=== PATIENT | female | born 1990 | race American Indian/Alaskan Native ===

== ENCOUNTER 2021-09-15 13:52 | Outpatient (CLI) | payer MEDICAID ==
[2021-09-15 14:31] VITALS: BP 112/59
[2021-09-15 15:14] LABS: Hematocrit 30.5 % (30.3-42.9); Hemoglobin 10.3 gm/dl (10.1-14.3); Mean Corpuscular HGB Conc 34 % (30-34); Mean Corpuscular Volume 88 fl (79-97); Platelet Count 315 K/mm3 (140-440); Red Blood Count 3.48 M/mm3 (3.65-5.03); Red Cell Distribution Width 13.2 % (13.2-15.2)
[2021-09-15 15:38] LABS: Alanine Aminotransferase 12 units/L (7-56); Albumin 3.2 g/dL (3.9-5); Blood Urea Nitrogen 4 mg/dL (7-17); Calcium 8.3 mg/dL (8.4-10.2); Hemolysis Index 14
[2021-09-15 15:45] LABS: BUN/Creatinine Ratio 10
--- NOTE | 2021-09-15 16:06 | Ultrasound Report ---
LIMITED RUQ ABDOMINAL ULTRASOUND INDICATION: gallbladder. COMPARISON: No relevant prior imaging study available. FINDINGS: Pancreas: Visualized portions show no significant abnormality. Abdominal Aorta: Normal size. IVC: No significant abnormality. Liver: The liver measures 15.2 cm in length. No significant abnormality. Normal hepatopedal blood fl ow in the main portal vein. Gallbladder: No significant abnormality. Bile ducts: No significant abnormality. Common bile duct measures 4 mm. Right kidney: No significant abnormality visualized.. Free fluid: None. Additional Findings: None. IMPRESSION: 1. Normal exam. Signer Name: Bud Galindo MD Signed: 09/15/2021 4:02 PM Workstation Name: [id number]
[2021-09-15 19:41] LABS: Total Cells Counted 100
[2021-09-15 19:42] LABS: RBC Morphology Normal
== END 2021-09-15 17:45 | disposition home or self-care (01) ==
LOC: TRG 13:52 → APU 13:56 → TRG 17:45
PROVIDERS: ATTEND Obstetrics & Gynecology
DX: R10.11 Right upper quadrant pain (principal)
CPT/HCPCS: 36415; 76705; 80053; 82150; 83690; 85007; 85025

== ENCOUNTER 2021-12-14 13:25 | Inpatient (IN) | payer MEDICAID ==
[2021-12-14 15:44] LABS: Basophils % (Auto) 0.4 % (0.0-1.8); Eosinophils % (Auto) 0.2 % (0.0-4.3); Hematocrit 33.5 % (30.3-42.9); Hemoglobin 10.7 gm/dl (10.1-14.3); Lymphocytes # (Auto) 2.1 K/mm3 (1.2-5.4); Lymphocytes % (Auto) 18.2 % (13.4-35.0); Mean Corpuscular HGB Conc 32 % (30-34); Mean Corpuscular Volume 86 fl (79-97); Monocytes # (Auto) 0.6 K/mm3 (0.0-0.8); Monocytes % (Auto) 5.1 % (0.0-7.3); Platelet Count 313 K/mm3 (140-440); Red Blood Count 3.91 M/mm3 (3.65-5.03); Red Cell Distribution Width 14.7 % (13.2-15.2)
[2021-12-14] MEDS ORDERED: OXYTOCIN 10 UNIT/1 ML INJ IM PRN (17:00)
[2021-12-14] MEDS ORDERED: TERBUTALINE 1 MG/1 ML INJ SUB-Q PRN (17:00)
[2021-12-14] MEDS ORDERED: fentaNYL 100 MCG/2 ML INJ IV PRN (17:00)
[2021-12-14] MEDS ORDERED: NALOXONE 0.4 MG/1 ML INJ IV PRN (17:00)
[2021-12-14] MEDS ORDERED: LOPERAMIDE 2 MG CAP PO PRN (17:00)
[2021-12-14] MEDS ORDERED: METHYLERGONOVINE MALEATE 0.2 MG/ML VIAL IM PRN (17:00)
[2021-12-14] MEDS ORDERED: ACETAMINOPHEN 325 MG TAB PO PRN (17:00)
[2021-12-14] MEDS ORDERED: ONDANSETRON 4 MG/2 ML INJ IV PRN (17:00)
[2021-12-14] MEDS ORDERED: ePHEDrine SULFATE 50 MG/1 ML INJ IV PRN (17:00)
[2021-12-14] MEDS ORDERED: MINERAL OIL 30 ML ORAL LIQD PO PRN (17:00)
[2021-12-14] MEDS ORDERED: PROMETHAZINE 25 MG TAB PO PRN (17:00)
[2021-12-14] MEDS ORDERED: miSOPROStol 200 MCG TAB PR PRN (17:00)
[2021-12-14] MEDS ORDERED: CARBOPROST TROMETHAMINE 250 MCG/1 ML INJ IM PRN (17:00)
[2021-12-14] MEDS ORDERED: LIDOCAINE (2%) 20 MG/1 ML VIAL 20 ML MDV INFILTRATI ONE (18:00)
[2021-12-14] MEDS ORDERED: DINOPROSTONE 10 MG VAG SUPP VG ONE (19:00)
--- NOTE | 2021-12-14 19:19 | History and Physical Report ---
History of Present Illness Date of examination: 12/14/21 Date of admission: 12/14/21 14:06 Chief complaint: Sent from clinic with Oligohydramnios History of present illness: at 40.3wks by LMP c/w U/S. care at [facility]. Pt sent for low MARK. Pt admits to movement, denies LOF or vag bleed or ctx. Pt denies headache. labs with O positive, neg screen, rubella immunea and VDRL neg, HIV neg and GBS status not in the records. 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, Elevated amylase ?cause, Leucocytosis, Low vit D) Past Surgical History: no surgical history Social history: no significant social history - Obstetrical History Expected Date of Delivery: 12/11/21 Actual Gestation: 40 Week(s) 3 Day(s) : 5 Hx # Term Pregnancies: 3 Spontaneous Abortions: 1 Number of Living Children: 3 Medications and Allergies Allergies Allergy/AdvReac Type Severity Reaction Status Date / Time No Known Allergies Allergy Unverified 09/15/21 14:32 Home Medications Medication Instructions Recorded Confirmed Last Taken Type Amoxicillin/Potassium Clav 1 each PO BID 7 Days #14 tablet 09/15/21 Unknown Rx [Augmentin 875-125 Tablet] Active Meds: Active Medications Acetaminophen (Acetaminophen 325 Mg Tab) 650 mg PO Q4H PRN PRN Reason: Pain, Mild (1-3) Carboprost Tromethamine (Carboprost Tromethamine 250 Mcg/1 Ml Inj) 250 mcg IM ONCE PRN PRN Reason: Uterine Bleeding Ephedrine Sulfate (Ephedrine Sulfate 50 Mg/1 Ml Inj) 10 mg IV Q2M PRN PRN Reason: Hypotension Fentanyl (Fentanyl 100 Mcg/2 Ml Inj) 100 mcg IV Q2H PRN PRN Reason: Pain,Severe (7-10) LABOR PAIN Lactated Ringer's (Lactated Ringers) 1,000 mls @ 125 mls/hr IV DIRECT ALDO Oxytocin/Sodium Chloride (Pitocin/Ns 30 Unit/500ml) 30 units in 500 mls @ 40 mls/hr IV TITR ALDO; Protocol Loperamide HCl (Loperamide 2 Mg Cap) 2 mg PO ONCE PRN PRN Reason: give with Hemabate Methylergonovine Maleate (Methylergonovine Maleate 0.2 Mg/Ml Vial) 0.2 mg IM ONCE PRN PRN Reason: Uterine Bleeding Mineral Oil (Mineral Oil 30 Ml Oral Liqd) 30 ml PO QHS PRN PRN Reason: Constipation Misoprostol (Misoprostol 200 Mcg Tab) 800 mcg [place] ONCE PRN PRN Reason: Uterine Bleeding Nalbuphine HCl (Nalbuphine 10 Mg/1 Ml Inj) 10 mg IV Q2H PRN PRN Reason: Pain, Moderate (4-6) Naloxone HCl (Naloxone 0.4 Mg/1 Ml Inj) 0.1 mg IV Q2MIN PRN PRN Reason: Res Rate </= 8 or 02 SAT < 92% Ondansetron HCl (Ondansetron 4 Mg/2 Ml Inj) 4 mg IV Q8H PRN PRN Reason: Nausea And Vomiting Oxytocin (Oxytocin 10 Unit/1 Ml Inj) 10 unit IM ONCE PRN PRN Reason: Uterine Bleeding Promethazine HCl (Promethazine 25 Mg Tab) 25 mg PO Q6H PRN PRN Reason: Nausea And Vomiting Terbutaline Sulfate (Terbutaline 1 Mg/1 Ml Inj) 0.25 mg SUB-Q ONCE PRN PRN Reason: Hyperstimulation/Hypertonicity Review of Systems All systems: negative (no complaints) - Vital Signs Vital signs: Vital Signs Pulse BP 73 124/75 12/14/21 14:40 12/14/21 14:40 Temp Pulse Resp BP Pulse Ox 98.9 F 81 16 115/60 100 12/14/21 18:13 12/14/21 19:09 12/14/21 18:13 12/14/21 18:15 12/14/21 19:09 - Physical Exam Breasts: Positive: deferred Cardiovascular: Regular rate Lungs: Positive: Normal air movement Genitourinary (Female): Positive: normal external genitalia Vulva: both: normal (by nurse exam) Uterus: Positive: enlarged (non-tender, gravid) - Obstetrical FHR: category 1 Uterine Contraction Monitor Mode: External Cervical Dilatation: 1 Cervical Effacement Percentage: 60 station: -2 Uterine Contraction Pattern: Absent Results Result Diagrams: 12/14/21 14:58 Abnormal lab results 12/14/21 12/14/21 Range/Units 14:58 14:58 WBC 11.4 H (4.5-11.0) K/mm3 MCH 27 L (28-32) pg Seg Neutrophils % 76.1 H (40.0-70.0) % Seg Neutrophils # 8.7 H (1.8-7.7) K/mm3 Syphilis IgG Antibody Reactive A (NonReactive) All other labs normal. Assessment and Plan Term preg with Oligohydramnios, unknown cause 1. Admit to labor and delivery 2. Cervidil induction 3. Check labs and confirm intact membranes 4. May have IV pain med or epidural when needed Expect
[2021-12-14 21:19] LABS: Alanine Aminotransferase 6 units/L (7-56); Albumin 3.3 g/dL (3.9-5); Blood Urea Nitrogen 4 mg/dL (7-17); Calcium 8.6 mg/dL (8.4-10.2); Hemolysis Index 5
[2021-12-14 21:28] LABS: BUN/Creatinine Ratio 8
[2021-12-15] MEDS: NalbUPHINE 10 MG/1 ML INJ IV PRN ×2 (01:20→05:27)
[2021-12-15] MEDS ORDERED: miSOPROStol 25 MCG TAB PO SCH (06:00)
[2021-12-15] MEDS: OXYTOCIN DRIP 30 UNITS/500 ML BAG IV SCH ×3 (07:37→19:54)
--- NOTE | 2021-12-15 07:45 | Procedure Note ---
OB Delivery Note - Delivery Date of Delivery: 12/15/21 Surgeon: BLANCHE ROBERTS Estimated blood loss: 300cc - Vaginal Delivery position: OA Intrapartum events: precipitous labor- <3hr Delivery induction: other (Cervidil, Quispe Bulb, misoprostol) Delivery augmentation: rupture of membranes Delivery monitor: external FHT Route of delivery: Delivery placenta: spontaneous Delivery cord: nuchal cord Episiotomy: none Delivery laceration: none - A at 1 minute: 8 at 5 minutes: 9 Gender: Female
[2021-12-15] MEDS ORDERED: LANOLIN/ZINC/DIMETHICONE (LANSINOH) 7 GM TP PRN (08:00)
[2021-12-15] MEDS ORDERED: diphenhydrAMINE 25 MG CAP PO PRN (08:00)
[2021-12-15] MEDS ORDERED: WITCH HAZEL/ GLYCERIN PAD TP PRN (08:00)
[2021-12-15] MEDS ORDERED: ACETAMINOPHEN 325 MG TAB PO PRN (08:00)
[2021-12-15] MEDS: IBUPROFEN 600 MG TAB PO SCH ×3 (08:13→22:19)
[2021-12-15] MEDS ORDERED: PROMETHAZINE 25 MG TAB PO PRN (08:30)
[2021-12-15] MEDS ORDERED: ONDANSETRON 4 MG/2 ML INJ IV PRN (08:30)
[2021-12-15] MEDS: DOCUSATE SODIUM 100 MG CAP PO SCH (09:47)
[2021-12-15] MEDS: HYDROcodone/ACETAMINOPHEN 5-325 MG TAB PO PRN (09:47)
[2021-12-15 10:48] LABS: Hematocrit 30.6 % (30.3-42.9); Hemoglobin 9.7 gm/dl (10.1-14.3); Mean Corpuscular HGB Conc 32 % (30-34); Mean Corpuscular Volume 86 fl (79-97); Platelet Count 289 K/mm3 (140-440); Red Blood Count 3.56 M/mm3 (3.65-5.03); Red Cell Distribution Width 14.5 % (13.2-15.2)
--- NOTE | 2021-12-15 13:52 | Consultation ---
History of Present Illness - Reason for Consult Consult date: 12/15/21 Medical management Requesting physician: BASIM CORDOBA - History of Present Illness 31 YO Female s/p . Consult place for medical management. Pt found to have syphilis on routine screening lab exam. Patient seen and evaluated in her room. Patient denies fever, chills, chest pain, palpitation, productive cough, skin extremities no contact, known exposure to COVID-19. Patient denies pain. No reported nursing events. Past History Past Medical History: anemia Past Surgical History: No surgical history, Other (Reviewed) Social history: single. denies: smoking, alcohol abuse, prescription drug abuse Family history: hypertension Medications and Allergies Allergies Allergy/AdvReac Type Severity Reaction Status Date / Time No Known Allergies Allergy Unverified 09/15/21 14:32 Active Meds: Active Medications Acetaminophen (Acetaminophen 325 Mg Tab) 650 mg PO Q4H PRN PRN Reason: Pain MILD(1-3)/Fever >100.5/LOPEZ Hydrocodone Bitart/Acetaminophen (Hydrocodone/Acetaminophen 5-325 Mg Tab) 2 each PO Q6H PRN PRN Reason: Pain, Moderate (4-6) Last Admin: 12/15/21 09:47 Dose: 2 each Bisacodyl (Bisacodyl 10 Mg Rect Supp) 10 mg VT BID PRN PRN Reason: Constipation Carboprost Tromethamine (Carboprost Tromethamine 250 Mcg/1 Ml Inj) 250 mcg IM ONCE PRN PRN Reason: Uterine Bleeding Diphenhydramine HCl (Diphenhydramine 25 Mg Cap) 25 mg PO Q6H PRN PRN Reason: Itching Docusate Sodium (Docusate Sodium 100 Mg Cap) 100 mg PO BID ALDO Last Admin: 12/15/21 09:47 Dose: 100 mg Ephedrine Sulfate (Ephedrine Sulfate 50 Mg/1 Ml Inj) 10 mg IV Q2M PRN PRN Reason: Hypotension Fentanyl (Fentanyl 100 Mcg/2 Ml Inj) 100 mcg IV Q2H PRN PRN Reason: Pain,Severe (7-10) LABOR PAIN Lactated Ringer's (Lactated Ringers) 1,000 mls @ 125 mls/hr IV DIRECT ALDO Oxytocin/Sodium Chloride (Pitocin/Ns 30 Unit/500ml) 30 units in 500 mls @ 40 mls/hr IV TITR ALDO; Protocol Last Admin: 12/15/21 07:37 Dose: 40 ml/hr, 40 mls/hr Ibuprofen (Ibuprofen 600 Mg Tab) 600 mg PO Q6H [facility] Last Admin: 12/15/21 08:13 Dose: 600 mg Loperamide HCl (Loperamide 2 Mg Cap) 2 mg PO ONCE PRN PRN Reason: give with Hemabate Magnesium Hydroxide (Magnesium Hydroxide (Mom) Oral Liqd Udc) 30 ml PO HS PRN PRN Reason: Constipation Methylergonovine Maleate (Methylergonovine Maleate 0.2 Mg/Ml Vial) 0.2 mg IM ONCE PRN PRN Reason: Uterine Bleeding Mineral Oil (Mineral Oil 30 Ml Oral Liqd) 30 ml PO QHS PRN PRN Reason: Constipation Misoprostol (Misoprostol 25 Mcg Tab) 25 mcg PO Q4H [facility] Stop: 12/15/21 18:01 Multi-Ingredient Ointment (Lanolin/Zinc/Dimethicone (Lansinoh) 7 Gm) 1 applic TP PRN PRN PRN Reason: Sore Nipples Nalbuphine HCl (Nalbuphine 10 Mg/1 Ml Inj) 10 mg IV Q2H PRN PRN Reason: Pain, Moderate (4-6) Last Admin: 12/15/21 05:27 Dose: 10 mg Naloxone HCl (Naloxone 0.4 Mg/1 Ml Inj) 0.1 mg IV Q2MIN PRN PRN Reason: Res Rate </= 8 or 02 SAT < 92% Ondansetron HCl (Ondansetron 4 Mg/2 Ml Inj) 4 mg IV Q8H PRN PRN Reason: Nausea And Vomiting Last Admin: 12/15/21 09:00 Dose: 4 mg Penicillin G Benzathine (Penicillin G Benzathine 1.2 Million Unit/2 Ml Inj) 2.4 mil.units IM ONCE ONE Stop: 12/15/21 14:01 Promethazine HCl (Promethazine 25 Mg Tab) 25 mg PO Q6H PRN PRN Reason: Nausea And Vomiting Sodium Chloride (Sodium Chloride 0.9% 10 Ml Flush Syringe) 10 ml IV PRN NR Stop: 12/25/21 07:59 Terbutaline Sulfate (Terbutaline 1 Mg/1 Ml Inj) 0.25 mg SUB-Q ONCE PRN PRN Reason: Hyperstimulation/Hypertonicity Witch Sasha/Glycerin (Witch Sasha/ Glycerin Pad) 1 each TP PRN PRN PRN Reason: Hemorrhoid/cleansing/soothing Review of Systems Constitutional: no weight loss, no weight gain, no fever, no chills Ears, nose, mouth and throat: no ear pain, no ear discharge, no decreased hearing, no nose pain, no nasal discharge Breasts: no change in shape, no swelling, no mass Cardiovascular: no orthopnea, no palpitations, no rapid/irregular heart beat, no syncope Respiratory: no cough, no excessive sputum, no shortness of breath, no dyspnea on exertion Gastrointestinal: no abdominal pain, no diarrhea, no constipation, no h ematemesis Genitourinary Female: no pelvic pain, no flank pain, no dysuria, no urinary frequency, no urgency Rectal: no pain, no incontinence Musculoskeletal: no shooting arm pain, no low back pain Integumentary: no rash, no redness Neurological: no head injury, no paralysis, no numbness, no seizures, no syncope Psychiatric: no anxiety, no change in sleep habits, no change in libido Endocrine: no cold intolerance, no polydipsia, no polyuria Hematologic/Lymphatic: no easy bruising, no easy bleeding Allergic/Immunologic: no urticaria, no allergic rhinitis, no wheezing Exam - Constitutional Vitals: Temp Pulse Resp BP Pulse Ox 98.2 F 67 16 111/66 95 12/15/21 12:05 12/15/21 12:05 12/15/21 12:05 12/15/21 12:05 12/15/21 12:05 General appearance: Present: no acute distress, well-nourished - EENT Eyes: Present: PERRL ENT: hearing intact, clear oral mucosa - Neck Neck: Present: supple, normal ROM - Respiratory Respiratory effort: normal Respiratory: bilateral: CTA - Cardiovascular Heart Sounds: Present: S1 & S2. Absent: rub, click - Extremities Extremities: pulses symmetrical, No edema Peripheral Pulses: within normal limits - Abdominal General gastrointestinal: Present: soft, non-tender, non-distended, normal bowel sounds Female genitourinary: Present: normal - Integumentary Integumentary: Present: clear, warm, dry - Musculoskeletal Musculoskeletal: gait normal, strength equal bilaterally - Psychiatric Psychiatric: appropriate mood/affect, intact judgment & insight - Neurologic Neurologic: CNII-XII intact, moves all extremities Results - Labs CBC & Chem 7: 12/15/21 19:00 12/15/21 19:00 Labs: Abnormal lab results 12/14/21 12/14/21 12/14/21 Range/Units 14:58 14:58 20:39 WBC 11.4 H (4.5-11.0) K/mm3 RBC (3.65-5.03) M/mm3 Hgb (10.1-14.3) gm/dl MCH 27 L (28-32) pg Seg Neutrophils % 76.1 H (40.0-70.0) % Seg Neutrophils # 8.7 H (1.8-7.7) K/mm3 Sodium (137-145) mmol/L Carbon Dioxide (22-30) mmol/L BUN (7-17) mg/dL Creatinine (0.6-1.2) mg/dL Glucose (65-100) mg/dL ALT (7-56) units/L Alkaline Phosphatase (35-129) units/L Albumin (3.9-5) g/dL Amylase 201 H (27-131) units/L Syphilis IgG Antibody Reactive A (NonReactive) 12/14/21 12/15/21 Range/Units 20:39 10:28 WBC 13.7 H (4.5-11.0) K/mm3 RBC 3.56 L (3.65-5.03) M/mm3 Hgb 9.7 L (10.1-14.3) gm/dl MCH 27 L (28-32) pg Seg Neutrophils % (40.0-70.0) % Seg Neutrophils # (1.8-7.7) K/mm3 Sodium 134 L (137-145) mmol/L Carbon Dioxide 21 L (22-30) mmol/L BUN 4 L (7-17) mg/dL Creatinine 0.5 L (0.6-1.2) mg/dL Glucose 103 H (65-100) mg/dL ALT 6 L (7-56) units/L Alkaline Phosphatase 214 H (35-129) units/L Albumin 3.3 L (3.9-5) g/dL Amylase (27-131) units/L Syphilis IgG Antibody (NonReactive) Assessment and Plan - Patient Problems (1) Syphilis in , condition Current Visit: Yes Status: Acute Plan to address problem: Patient treated with penicillin G2 400,000 units, supportive care. patient counseled regarding high risk sexual behavior.
[2021-12-15] MEDS ORDERED: PENICILLIN G BENZATHINE 1.2 MILLION UNIT/2 ML INJ IM ONE (14:00)
[2021-12-15] MEDS ORDERED: OXYTOCIN DRIP 30 UNITS/500 ML BAG IV SCH (18:30)
[2021-12-15] MEDS ORDERED: miSOPROStol 200 MCG TAB ONE (18:46)
[2021-12-15] MEDS ORDERED: fentaNYL 100 MCG/2 ML INJ IV ONE (18:50)
[2021-12-15] MEDS: LACTATED RINGERS 1,000 ML IV SCH ×2 (18:58→21:54)
--- NOTE | 2021-12-15 19:09 | Event Note ---
Date: 12/15/21 Nurse called from stating pt has hemorrhage. I went to bedside and removed approx 100cc of clots, 2nd line IV start done to right forearm after nurse attempt x1 failed. V/S stable. SSE done and no cervical lacerations seen. Pt then given IV fentanyl 100mcg and manual removal clots done x2 and fundus at 14wks. OB u/s done for retained products. CBC sent. IV saline 1liter ordered and pt to get 2 doses of ancef 2Gm now and repeat in 8hrs x2nd dose. Pt remained alert during the entire exam. Cytotec 800mcg placed per rectum without difficulty. Quispe cath to gravity ordered and same may remain during the night and nurse to notify MD if output less than 30cc/hr. Will await the above results and notify release of information specialist team if pt remains stable. All questions encouraged and answered. QBL per charge nurse later obtained was 293cc.
[2021-12-15 19:36] LABS: Alanine Aminotransferase 8 units/L (7-56); Albumin 2.7 g/dL (3.9-5); Blood Urea Nitrogen 4 mg/dL (7-17); Calcium 8.2 mg/dL (8.4-10.2); Hemolysis Index 14
[2021-12-15 19:38] LABS: BUN/Creatinine Ratio 10
[2021-12-15 19:45] LABS: Basophils # (Auto) 0.1 K/mm3 (0.0-0.1); Basophils % (Auto) 0.6 % (0.0-1.8); Eosinophils % (Auto) 0.2 % (0.0-4.3); Hematocrit 33.1 % (30.3-42.9); Hemoglobin 10.3 gm/dl (10.1-14.3); Lymphocytes # (Auto) 2.8 K/mm3 (1.2-5.4); Lymphocytes % (Auto) 17.4 % (13.4-35.0); Mean Corpuscular HGB Conc 31 % (30-34); Mean Corpuscular Volume 87 fl (79-97); Monocytes # (Auto) 0.6 K/mm3 (0.0-0.8); Monocytes % (Auto) 4.1 % (0.0-7.3); Red Blood Count 3.79 M/mm3 (3.65-5.03); Red Cell Distribution Width 14.4 % (13.2-15.2)
[2021-12-15] MEDS ORDERED: miSOPROStol 200 MCG TAB VG ONE (19:50)
[2021-12-15 19:52] LABS: Platelet Count 208 K/mm3 (140-440)
--- NOTE | 2021-12-15 20:15 | Ultrasound Report ---
ULTRASOUND OBSTETRIC INDICATION: Possible retained placenta. TECHNIQUE: Transvaginal. COMPARISON: None available. FINDINGS: UTERUS: Expected enlargement of the uterus, measuring 14.3 x 9.1 x 9.3 cm. A round hyperec hoic structure is noted along the uterine fundus on image 12 measuring 2.3 x 1.8 cm. This finding was not evaluated with color Doppler imaging. There is expected appearance and thickness of the endometr ial complex, which measures 4 mm. No evidence of retained products of conception is noted along the e ndometrial canal. ADNEXA: No significant abnormality. FREE FLUID: Expected small amount of free fluid along the cul-de-sac. ADDITIONAL FINDINGS: None. IMPRESSION: 1. Indeterminate hyperechoic structure in the uterine fundus is incompletely evaluated. Retained prod ucts of conception cannot be entirely excluded. However, this finding appears separate from the endom etrial canal. 2. No other significant abnormality. Signer Name: Bryce Mix MD Signed: 12/15/2021 8:11 PM Workstation Name: [id number]
[2021-12-15] MEDS ORDERED: MAGNESIUM HYDROXIDE (MOM) ORAL LIQD UDC PO PRN (22:00)
[2021-12-16] MEDS: HYDROcodone/ACETAMINOPHEN 5-325 MG TAB PO PRN ×2 (01:47→11:18)
[2021-12-16] MEDS: DOCUSATE SODIUM 100 MG CAP PO SCH ×3 (05:54→23:59)
[2021-12-16] MEDS: IBUPROFEN 600 MG TAB PO SCH ×2 (06:06→17:10)
[2021-12-16 11:21] LABS: Basophils # (Auto) 0.1 K/mm3 (0.0-0.1); Basophils % (Auto) 0.5 % (0.0-1.8); Eosinophils # (Auto) 0.1 K/mm3 (0.0-0.4); Eosinophils % (Auto) 0.6 % (0.0-4.3); Hematocrit 25.8 % (30.3-42.9); Hemoglobin 8.3 gm/dl (10.1-14.3); Lymphocytes # (Auto) 3.1 K/mm3 (1.2-5.4); Lymphocytes % (Auto) 22.3 % (13.4-35.0); Mean Corpuscular HGB Conc 32 % (30-34); Mean Corpuscular Volume 86 fl (79-97); Monocytes # (Auto) 0.6 K/mm3 (0.0-0.8); Monocytes % (Auto) 4.3 % (0.0-7.3); Platelet Count 274 K/mm3 (140-440); Red Cell Distribution Width 14.3 % (13.2-15.2)
--- NOTE | 2021-12-16 13:06 | Progress Note ---
Assessment and Plan A: day 1 S/P , S/P hemorrhage last night. Anemia. Positive RPR. P: Iron supplementation. US with color doppler imaging to evaluate for retained placenta. Hospitalist has seen patient re: positive RPR and patient has been treated with penicillin. Baby is being treated in NICU. Obtain urinalysis. Continue routine care. Anticipate discharge tomorrow if patient continues to do well. Plan follow up with ID as an outpatient after hospital discharge. Subjective - Subjective Date of service: 12/16/21 Principal diagnosis: day 1 S/P Interval history: Patient reports small amount of lochia now (changing pad about every 4 hours or so); had hemorrhage last night. Hemoglobin 8.3; hematocrit 25.8. Denies dizziness, fatigue, chest pain, or SOB. Leukocytosis resolving. Has been seen by hospitalist for syphilis and has been treated. Denies any chancre or rash. Patient reports: appetite normal, voiding normally, pain well controlled, flatus, ambulating normally, no dizzy ambulation, no nauseated : in NICU Objective - Vital Signs Latest vital signs: Vital Signs Temp Pulse Resp BP BP Pulse Ox Pulse Ox 12/16/21 11:08 98.3 F 91 H 18 127/75 99 12/16/21 08:36 98 12/16/21 07:27 97.7 F 74 18 128/77 100 12/16/21 02:37 98 12/16/21 01:47 18 99 12/16/21 00:27 100.2 F H 79 18 128/71 100 12/15/21 20:45 99.6 F 86 18 140/72 99 12/15/21 20:30 98 12/15/21 18:45 83 16 124/82 99 12/15/21 18:30 98.9 F 80 16 130/80 100 12/15/21 15:36 97.9 F 66 20 115/71 98 Intake and Output 12/15/21 12/16/21 12/16/21 23:59 07:59 15:59 Intake Total 1302.667 240 120 Output Total 1300 700 Balance 2.667 -460 120 Intake: IV 902.667 Lactated Ringers 1,000 ml 366.667 @ 125 mls/hr IV DIRECT ALDO Rx#:[id number] PITOCin/NS 30 UNIT/500ML 436.000 30 units In 500 ml @ 40 mls/hr IV TITR [facility] Rx#: [id number] ceFAZolin 2 GM In NaCl 0. 100 9% 100 ml @ 200 mls/hr IV Q8H [facility] Rx#:[id number] Oral 400 240 120 Output: Urine 1300 700 Uretheral (Quispe) 400 700 Void 900 Other: Total, Intake Amount 200 240 120 Total, Output Amount 900 # Voids Void 1 - Exam Cardiovascular: Present: Regular rate, No murmurs Lungs: Present: Clear to auscultation Abdomen: Present: normal appearance, soft, normal bowel sounds. Absent: distention, tenderness, guarding, rigidity Uterus: Present: normal, firm, fundal height below umbilicus (fundus firm and midline at 2 FB below umbilicus). Absent: bogginess, tenderness Extremities: Present: normal. Absent: tenderness, edema - Labs Labs: Abnormal lab results 12/15/21 12/15/21 12/16/21 Range/Units 19:00 19:00 10:45 WBC 15.9 H 13.7 H (4.5-11.0) K/mm3 RBC 3.00 L (3.65-5.03) M/mm3 Hgb 8.3 L (10.1-14.3) gm/dl Hct 25.8 L D (30.3-42.9) % MCH 27 L (28-32) pg Seg Neutrophils % 77.7 H 72.3 H (40.0-70.0) % Seg Neutrophils # 12.4 H 9.9 H (1.8-7.7) K/mm3 Sodium 131 L (137-145) mmol/L Carbon Dioxide 19 L (22-30) mmol/L BUN 4 L (7-17) mg/dL Creatinine 0.4 L (0.6-1.2) mg/dL Glucose 102 H (65-100) mg/dL Calcium 8.2 L (8.4-10.2) mg/dL Alkaline Phosphatase 175 H (35-129) units/L Total Protein 6.1 L (6.3-8.2) g/dL Albumin 2.7 L (3.9-5) g/dL
--- NOTE | 2021-12-16 15:55 | Ultrasound Report ---
Pelvic Ultrasound HISTORY: Please evaluate for retained placenta. TECHNIQUE: Grayscale and color imaging performed. COMPARISON: Endovaginal ultrasound from yesterday IMPRESSION: Endometrial echocomplex measures 7 mm with a trace amount of fluid inferiorly. No obvious retained products of conception identified. Signer Name: Bud Galindo MD Signed: 12/16/2021 3:50 PM Workstation Name: [id number]
--- NOTE | 2021-12-16 16:09 | Progress Note ---
Assessment and Plan (1) Syphilis in , condition Current Visit: Yes Status: Acute Plan to address problem: Patient treated with penicillin G2 400,000 units, supportive care. patient counseled regarding high risk sexual behavior. Subjective Date of service: 12/16/21 Principal diagnosis: day 1 S/P Objective - Constitutional Vitals: Vital Signs - 12hr 12/16/21 12/16/21 12/16/21 07:27 08:36 11:08 Temperature 97.7 F 98.3 F Pulse Rate 74 91 H Respiratory 18 18 Rate Blood Pressure 128/77 127/75 O2 Sat by Pulse 100 99 Oximetry O2 Sat by Pulse 98 Oximetry [ Bilateral] - Labs CBC & Chem 7: 12/16/21 10:45 12/15/21 19:00 Labs: Abnormal lab results 12/15/21 12/15/21 12/16/21 Range/Units 19:00 19:00 10:45 WBC 15.9 H 13.7 H (4.5-11.0) K/mm3 RBC 3.00 L (3.65-5.03) M/mm3 Hgb 8.3 L (10.1-14.3) gm/dl Hct 25.8 L D (30.3-42.9) % MCH 27 L (28-32) pg Seg Neutrophils % 77.7 H 72.3 H (40.0-70.0) % Seg Neutrophils # 12.4 H 9.9 H (1.8-7.7) K/mm3 Sodium 131 L (137-145) mmol/L Carbon Dioxide 19 L (22-30) mmol/L BUN 4 L (7-17) mg/dL Creatinine 0.4 L (0.6-1.2) mg/dL Glucose 102 H (65-100) mg/dL Calcium 8.2 L (8.4-10.2) mg/dL Alkaline Phosphatase 175 H (35-129) units/L Total Protein 6.1 L (6.3-8.2) g/dL Albumin 2.7 L (3.9-5) g/dL
[2021-12-16] MEDS: FERROUS SULFATE 325 MG TAB PO SCH (17:09)
[2021-12-16 18:46] LABS: Bilirubin,Urine NEG (Negative); Blood,Urine LG (Negative); Color,Urine Straw (Yellow); Mucus,Urine FEW /HPF; Protein,Urine <15 mg/dL mg/dL (Negative); Urobilinogen,Urine < 2.0 mg/dL (<2.0)
[2021-12-17 06:22] LABS: Blood Urea Nitrogen 4 mg/dL (7-17); Calcium 7.9 mg/dL (8.4-10.2); Hemolysis Index 1
[2021-12-17 06:24] LABS: Basophils # (Auto) 0.1 K/mm3 (0.0-0.1); Basophils % (Auto) 0.6 % (0.0-1.8); Eosinophils # (Auto) 0.1 K/mm3 (0.0-0.4); Eosinophils % (Auto) 1.2 % (0.0-4.3); Hematocrit 27.8 % (30.3-42.9); Hemoglobin 8.8 gm/dl (10.1-14.3); Lymphocytes # (Auto) 3.1 K/mm3 (1.2-5.4); Lymphocytes % (Auto) 32.5 % (13.4-35.0); Mean Corpuscular HGB Conc 32 % (30-34); Mean Corpuscular Volume 86 fl (79-97); Monocytes # (Auto) 0.5 K/mm3 (0.0-0.8); Monocytes % (Auto) 5.2 % (0.0-7.3); Platelet Count 322 K/mm3 (140-440); Red Blood Count 3.23 M/mm3 (3.65-5.03); Red Cell Distribution Width 14.5 % (13.2-15.2)
[2021-12-17] MEDS: IBUPROFEN 600 MG TAB PO SCH ×2 (06:28)
[2021-12-17 06:30] LABS: BUN/Creatinine Ratio 8
--- NOTE | 2021-12-17 11:58 | Progress Note ---
Assessment and Plan - Patient Problems (1) Syphilis in , condition Current Visit: Yes Status: Acute Plan to address problem: Stable and treated. Subjective - Subjective Date of service: 12/17/21 Principal diagnosis: day 2 S/P Interval history: Doing well. Tracked down in NICU where she was with baby. Treatment with penicillin for syphillis documented. Patient reports: appetite normal, voiding normally, pain well controlled, ambulating normally : doing well Objective - Vital Signs Latest vital signs: Vital Signs Temp Pulse Resp BP Pulse Ox Pulse Ox 12/17/21 09:15 100 12/17/21 07:32 98.3 F 65 16 106/71 98 12/17/21 06:28 16 12/17/21 01:00 18 12/17/21 00:44 98.6 F 67 20 104/60 99 12/17/21 00:00 18 12/16/21 20:00 100 Intake and Output 12/16/21 12/17/21 12/17/21 23:59 07:59 15:59 Intake Total 480 Output Total 300 Balance -300 480 Intake: Oral 360 Intake, Free Water 120 Output: Urine 300 Void 300 Other: Total, Intake Amount 360 Total, Output Amount 300 # Voids Void 1 1 1 - Exam Lungs: Present: Normal air movement Uterus: Present: normal, firm Extremities: Present: normal Deep Tendon Reflex Grade: Normal +2 - Labs Labs: Abnormal lab results 12/17/21 12/17/21 Range/Units 05:39 05:40 RBC 3.23 L (3.65-5.03) M/mm3 Hgb 8.8 L (10.1-14.3) gm/dl Hct 27.8 L (30.3-42.9) % MCH 27 L (28-32) pg Chloride 110.7 H (98-107) mmol/L BUN 4 L (7-17) mg/dL Creatinine 0.5 L (0.6-1.2) mg/dL Calcium 7.9 L (8.4-10.2) mg/dL
--- NOTE | 2021-12-17 12:03 | Discharge Summary ---
Providers - Providers Date of Admission: 12/14/21 14:06 Date of discharge: 12/17/21 Attending physician: BASIM CORDOBA 12/15/21 12:38 Consult to Physician [CONS] Urgent Comment: Consulting Provider: SAMARA CROCKETT Physician Instructions: Reason For Exam: syphilis Primary care physician: BASIM CORDOBA Hospitalization Reason for admission: active labor Delivery: Episiotomy: none Laceration: none Other procedures: none complications: none Discharge diagnosis: IUP at term delivered baby: female Hospital course: E&M for syphillis. Condition at discharge: Good Disposition: HOME / SELF CARE / HOMELESS - Discharge Diagnoses (1) Syphilis in , condition Status: Acute Plan - Provider Discharge Summary Activity: routine, no sex for 6 weeks, no heavy lifting 4 weeks, no strenuous exercise, other (Obtain discharge order from hospitalist prior to discharge. F/U with Hospitalist re treatment for syphillis) Diet: other Instructions: routine Additional instructions: [] Smoking cessation referral if applicable(refer to patient education folder for contact #) [] Refer to [facility]'s [facility] Booklet Call your doctor immediately for: * Fever > 100.5 * Heavy vaginal bleeding ( >1 pad per hour) * Severe persistent headache * Shortness of breath * Reddened, hot, painful area to leg or breast * Drainage or odor from incision. * Keep incision clean and dry at all times and follow doctor's instructions regarding bathing/showering - Follow up plan Follow up: BASIM CORDOBA MD [Primary Care Provider] - 7 Days Forms: [facility] Discharge Summary
[2021-12-17] MEDS: FERROUS SULFATE 325 MG TAB PO SCH ×2 (12:28)
[2021-12-17] MEDS: DOCUSATE SODIUM 100 MG CAP PO SCH (12:28)
[2021-12-17 12:45] VITALS: BP 148/87
--- NOTE | 2021-12-17 14:48 | Progress Note ---
Subjective Date of service: 12/17/21 Principal diagnosis: day 2 S/P Objective - Constitutional Vitals: Vital Signs - 12hr 12/17/21 12/17/21 12/17/21 06:28 07:32 09:15 Temperature 98.3 F Pulse Rate 65 Respiratory 16 16 Rate Blood Pressure 106/71 O2 Sat by Pulse 98 Oximetry O2 Sat by Pulse 100 Oximetry [ Bilateral] 12/17/21 12:42 Temperature 98.2 F Pulse Rate 78 Respiratory 20 Rate Blood Pressure 148/87 O2 Sat by Pulse 99 Oximetry O2 Sat by Pulse Oximetry [ Bilateral] - Labs CBC & Chem 7: 12/17/21 05:40 12/17/21 05:39 Labs: Abnormal lab results 12/17/21 12/17/21 Range/Units 05:39 05:40 RBC 3.23 L (3.65-5.03) M/mm3 Hgb 8.8 L (10.1-14.3) gm/dl Hct 27.8 L (30.3-42.9) % MCH 27 L (28-32) pg Chloride 110.7 H (98-107) mmol/L BUN 4 L (7-17) mg/dL Creatinine 0.5 L (0.6-1.2) mg/dL Calcium 7.9 L (8.4-10.2) mg/dL
== END 2021-12-17 12:30 | disposition home or self-care (01) | DRG 774 ==
LOC: TRG 13:25 → APU 13:27 → TRG 13:38 → LD 14:06 → OB 12-15 09:19
PROVIDERS: ADMIT Obstetrics & Gynecology; ATTEND Obstetrics & Gynecology
PROC: 10E0XZZ Delivery of Products of Conception, External Approach (ICD-10-PCS; principal; 2021-12-15)
PROC: 3E0P7VZ Introduction of Hormone into Female Reproductive, Via Natural or Artificial Opening (ICD-10-PCS; 2021-12-15)
DX: O69.81X0 Labor and delivery complicated by cord around neck, without compression, not applicable or unspecified (principal); O98.12 Syphilis complicating childbirth; O41.03X0 Oligohydramnios, third trimester, not applicable or unspecified; Z3A.40 40 weeks gestation of pregnancy; Z37.0 Single live birth; Z20.822 Contact with and (suspected) exposure to COVID-19; O62.3 Precipitate labor; O72.1 Other immediate postpartum hemorrhage; O90.81 Anemia of the puerperium
CPT/HCPCS: 36415; 59200; 76817; 76830; 76857; 80048; 80053; 81001; 82150; 83690; 84112; 85025; 85027; 86592; 86593; 86780; 86850; 86900; 86901; G0378; J0561; J0690; J2300; J2405; J2590; J3010; J7120; U0003